=== PATIENT | female | born 1965 | race Caucasian/White ===

== ENCOUNTER 2019-12-26 22:23 | Emergency (ER) | payer OTHER ==
[~2019-12-26] VITALS: Ht 160 cm; Wt 84.1 kg
[2019-12-26 22:41] VITALS: Ht 160 cm; Wt 84.1 kg
[2019-12-26] MEDS ORDERED: TENORMIN50 MG PO (22:42)
[2019-12-27 01:00] VITALS: BP 210/108
== END 2019-12-27 01:00 | disposition home or self-care (01) ==
LOC: D.ER 22:23
DX: S29.012A Strain of muscle and tendon of back wall of thorax, initial encounter (principal); I10 Essential (primary) hypertension